=== PATIENT | female | born 1985 | race Caucasian/White ===

== ENCOUNTER 2021-06-04 06:46 | Emergency (ER) | payer MEDICAID, OTHER ==
[2021-06-04 07:08] VITALS: BP 148/93; PULSE 85
[2021-06-04] MEDS ORDERED: Acetaminophen/oxyCODONE 325-5 MG Tab PO STA (07:23)
--- NOTE | 2021-06-04 07:29 | EDM.PDOC ---
ED HPI GENERAL MEDICAL PROBLEM - General Chief Complaint: Back Pain or Injury Stated Complaint: PAIN IN LOWER BACK AND HIP Time Seen by Provider: 06/04/21 07:15 Source of Information: Reports: Patient, Old Records, RN History Limitations: Reports: No Limitations - History of Present Illness INITIAL COMMENTS - FREE TEXT/NARRATIVE: 36 yo female presents with progressive low back pain for the past 3 weeks. She recalls no injury. Initially she was getting relief with acetaminophen and later had to add ibuprofen. Now is not getting relief from either. There is no bowel or bladder incontinence. She had some radiation to her R leg yesterday. She was seen in the clinic yesterday and an X-ray showed mild degen disc dz of her low back. She was given Toradol in the clinic without relief. She was also given prednisone that she started on just this AM. She called into work today and was told to get a doctor's note so came to the ER. When she coughs or sneezes the pain is worse, but there is no radiation down her legs. Onset: Gradual Duration: Week(s): (3), Getting Worse Location: Reports: Back Quality: Reports: Ache Severity: Severe Improves with: Reports: Rest Worsens with: Reports: Movement Context: Reports: Other (see HPI). Denies: Trauma Associated Symptoms: Reports: No Other Symptoms Treatments [employer]: Reports: Acetaminophen, NSAIDS, Other (see below) (prednisone) Lower Back Pain Score (Numeric/FACES): 10 - Related Data Allergies Allergy/AdvReac Type Severity Reaction Status Date / Time Penicillins Allergy Intermediate Hives Verified 06/04/21 07:08 amoxicillin [Amoxicillin] Allergy Hives Verified 06/04/21 07:08 bupropion HCl Allergy Nausea and Verified 06/04/21 07:08 [From Wellbutrin] Vomiting pineapple [Pineapple] Allergy Hives Verified 06/04/21 07:08 vancomycin Allergy Burning Verified 06/04/21 07:08 Home Meds: Home Meds Albuterol [Ventolin HFA] 2 puff INH QID PRN 07/11/14 [History] Nicotine [Nicotine Patch] 1 patch TOP DAILY 07/11/14 [History] Ranitidine [Zantac] 150 mg PO DAILY PRN 07/15/14 [History] medroxyPROGESTERone Acetate [Depo-Provera] 1 dose IM Q90D 07/15/14 [History] Acetaminophen/HYDROcodone [HYDROcodone-Acetaminophen 5-325 MG *] 1 - 2 tab PO Q6H PRN #16 each 06/04/21 [Rx] predniSONE [Prednisone] 20 mg PO DAILY 06/04/21 [History] Social & Family History - Tobacco Use Tobacco Use Status *Q: Heavy Tobacco User Years of Tobacco use: 20 Packs/Tins Daily: 1 - Recreational Drug Use Recreational Drug Use: No ED ROS GENERAL - Review of Systems Review Of Systems: See Below Constitutional: Reports: No Symptoms HEENT: Reports: No Symptoms Respiratory: Reports: No Symptoms Cardiovascular: Reports: No Symptoms GI/Abdominal: Reports: No Symptoms : Reports: No Symptoms Musculoskeletal: Reports: Back Pain (low) Skin: Reports: No Symptoms Neurological: Reports: No Symptoms ED EXAM,LOWER BACK PAIN/INJURY - Physical Exam Exam: See Below Exam Limited By: No Limitations General Appearance: Alert, WD/WN, No Apparent Distress, Obese Eye Exam: Bilateral Eye: Normal Inspection Ears: Hearing Grossly Normal Nose: Normal Inspection, No Blood Throat/Mouth: Normal Inspection, Normal Lips, Normal Oropharynx, Normal Voice, No Airway Compromise Head: Atraumatic, Normocephalic Neck: Normal Inspection Respiratory/Chest: No Respiratory Distress, Lungs Clear, Normal Breath Sounds, No Accessory Muscle Use Cardiovascular: Regular Rate, Rhythm, No Edema Back Exam: Other (no SI jt pain. Seems to have some R sciatic notch pain. Straight leg raising is positive bilat, more so on the R with very tight hamstrings bilaterally.). No: Vertebral Tenderness Extremities: Normal Inspection, Normal Range of Motion, Non-Tender, No Pedal Edema Neurological: Alert, Normal Mood/Affect, CN II-XII Intact, No Motor/Sensory Deficits, Oriented x 3 DTR - Lower Extremities: 3+: Knee (R), Knee (L) Psychiatric: Normal Affect, Normal Mood Skin Exam: Warm, Dry, Intact, Normal Color, No Rash Course - Vital Signs Last Recorded V/S: Last Vital Signs Temp 36.4 C 06/04/21 07:07 Pulse 85 06/04/21 07:07 Resp 20 06/04/21 07:07 BP 148/93 H 06/04/21 07:07 Pulse Ox 100 06/04/21 07:07 - Orders/Labs/Meds Orders: Active Orders 24 hr Category Date Time Status Physical Therapy Screening [PT Screening] [OM.PC] Oth 06/04/21 10:25 Active Routine Meds: Medications Discontinued Medications Generic Name Dose Route Start Last Admin Trade Name Frevictorina PRN Reason Stop Dose Admin Lidocaine 700 mg 06/04/21 08:17 06/04/21 08:28 Lidocaine 5% 700 Mg Patch TRDERM 06/04/21 08:18 700 mg ONETIME ONE Administration Oxycodone/Acetaminophen 1 tab 06/04/21 07:23 06/04/21 07:34 Acetaminophen/Oxycodone 325-5 Mg Tab PO 06/04/21 07:24 1 tab ONETIME STA Administration - Re-Assessments/Exams Free Text/Narrative Re-Assessment/Exam: 06/04/21 08:17 not much relief with Percocet, will try a Lidoderm patch. Free Text/Narrative Re-Assessment/Exam: 06/04/21 13:07 Partial relief with Percocet Departure - Departure Time of Disposition: 13:07 Disposition: Home, Self-Care 01 Condition: Good Clinical Impression: Low back pain Qualifiers: Chronicity: acute Back pain laterality: right Sciatica presence: without sciatica Qualified Code(s): M54.5 - Low back pain - Discharge Information *PRESCRIPTION DRUG MONITORING PROGRAM REVIEWED*: Yes *COPY OF PRESCRIPTION DRUG MONITORING REPORT IN PATIENT THANG: Yes Prescriptions: Acetaminophen/HYDROcodone [HYDROcodone-Acetaminophen 5-325 MG *] 1 - 2 tab PO Q6H PRN #16 each PRN Reason: Pain Referrals: PCP,None [Primary Care Provider] - Forms: ED Department Discharge Additional Instructions: Take ibuprofen up to 600 mg every 6 hrs with food. Add either acetaminophen OR [place] as needed for added relief. No lifting, bending, or twisting. A referral was put in for PT in [place], call them for an appt. Call and make an appt to see your doctor for ER follow up MAR[facility]. Sepsis Event Note (ED) - Evaluation Sepsis Screening Result: No Definite Risk - Focused Exam Vital Signs: Vital Signs Temp Pulse Resp BP Pulse Ox 06/04/21 07:07 36.4 C 85 20 148/93 H 100 - My Orders Last 24 Hours: My Active Orders 06/04/21 10:25 Physical Therapy Screening [PT Screening] [OM.PC] Routine - Assessment/Plan Last 24 Hours: My Active Orders 06/04/21 10:25 Physical Therapy Screening [PT Screening] [OM.PC] Routine
[2021-06-04] MEDS ORDERED: Lidocaine 5% 700 MG Patch TRDERM ONE (08:17)
== END 2021-06-04 13:52 | disposition home or self-care (01) ==
LOC: JP.ED 06:46
DX: M54.5 Low back pain (principal); Z88.0 Allergy status to penicillin; Z88.1 Allergy status to other antibiotic agents; Z88.8 Allergy status to other drugs, medicaments and biological substances; Z72.0 Tobacco use
CPT/HCPCS: 99283; A9270

== ENCOUNTER 2022-02-22 18:19 | Emergency (ER) | payer OTHER ==
[2022-02-22 18:39] VITALS: BP 169/96; PULSE 121
[2022-02-22] MEDS ORDERED: methylPREDNISolone Sodium Succinate 125 MG/2 ML SDV IM ONE (19:06)
== END 2022-02-22 20:13 | disposition home or self-care (01) ==
LOC: JP.ED 18:19
DX: T25.112A Burn of first degree of left ankle, initial encounter (principal); T25.111A Burn of first degree of right ankle, initial encounter; Z88.0 Allergy status to penicillin; Z88.1 Allergy status to other antibiotic agents; Z91.018 Allergy to other foods
CPT/HCPCS: 96372; 99282; J2930

== ENCOUNTER 2025-05-23 22:35 | Emergency (ER) | payer OTHER | END 2025-05-23 22:43 | disposition left against medical advice (07) | LOC: JP.ED 22:35 | DX: Z53.21 Procedure and treatment not carried out due to patient leaving prior to being seen by health care provider (principal) ==